=== PATIENT | male | born 1975 | race Caucasian/White ===

== ENCOUNTER → 2020-11-09 | Outpatient (CLI) | payer OTHER ==
--- NOTE | 2020-11-09 18:04 | US ---
EXAMINATION TYPE: US scrotum with doppler. Grayscale and color Doppler Duplex imaging performed of t he scrotum. DATE OF EXAM: 11/09/2020 COMPARISON: NONE CLINICAL HISTORY: N49.2 Swelling of Rt testicle. Right testicular pain x 5 days EXAM MEASUREMENTS: TESTICLES: Right Testicle: 4.7 x 2.8 x 3.3 cm Left Testicle: 4.9 x 3.0 x 3.6 cm EPIDIDYMIS HEAD: Right Epididymis: 1.0 x 1.5 x 1.5 cm Left Epididymis: 0.9 x 1.3 x 2.0 cm Doppler performed to assess for testicular vascularity; good bilateral arterial color flow and wavefo miroslava are seen. Unable to obtain venous flow within bilateral testicles. Presence of hydroceles: left 2.9cm Presence of varicoceles: prominent vessels posterior and superior to right testicle that increased w ith valsalva IMPRESSION: Right testicle is swelling history for 5 days. There is no evidence of epididymitis or or chitis. Unable to obtain venous flow within the testicles at this time. Follow-up ultrasound of the t esticles may be obtained in 3-5 days if patient continues to be symptomatic.
--- NOTE | 2020-11-09 19:29 | US ---
EXAMINATION TYPE: US groin RT DATE OF EXAM: 11/09/2020 COMPARISON: NONE CLINICAL HISTORY: N49.2 Swelling of Rt testicle. Right testicular pain x 5 days Right groin: appears wnl IMPRESSION: No mass or fluid collection in the right groin.
== END | disposition home or self-care (01) ==
LOC: RADUSWWP 16:31
PROVIDERS: ATTEND Family Medicine
DX: N49.2 Inflammatory disorders of scrotum (principal)
CPT/HCPCS: 76870; 93975